=== PATIENT | female | born 1990 | race American Indian/Alaskan Native ===

== ENCOUNTER 2017-12-07 17:13 | Emergency (ER) | payer OTHER ==
[2017-12-07 17:52] VITALS: BP 124/78
[2017-12-07] MEDS ORDERED: MOTRIN PO ONE (21:10)
[2017-12-07] MEDS ORDERED: BOOSTRIX IM ONE (21:11)
--- NOTE | 2017-12-07 21:11 | Emergency Department Report ---
ED Laceration HPI - HPI Chief Complaint: Wound/Laceration Stated Complaint: LEFT THUMB INJURY Time Seen by Provider: 12/07/17 20:37 Location: Upper Extremity Severity: mild Laceration Symptoms: No Foreign Body Sensation, No Numbness, No Weakness, No Pain Other History: Patient is a 19-year-old female with no prior medical history who presents to ED today complaining of left thumb injury that happened earlier today. Patient states she was at the change using a machine when she was trying to fix a part of the machine and it accidentally caught her thumb. Patient states minimal bleeding of skin on the thumb. Patient states her tetanus is not up-to-date and unknown last tetanus booster. She denies any other symptoms. ED Review of Systems ROS: Stated complaint: LEFT THUMB INJURY Other details as noted in HPI Constitutional: denies: chills, fever Eyes: denies: eye pain, eye discharge, vision change ENT: denies: ear pain, throat pain Respiratory: denies: cough, shortness of breath, wheezing Cardiovascular: denies: chest pain, palpitations Endocrine: no symptoms reported Gastrointestinal: denies: abdominal pain, nausea, diarrhea Genitourinary: denies: urgency, dysuria, discharge Musculoskeletal: denies: back pain, joint swelling, arthralgia Skin: other (lac). denies: rash, lesions, pruritus Neurological: denies: headache, weakness, paresthesias Psychiatric: denies: anxiety, depression Hematological/Lymphatic: denies: easy bleeding, easy bruising ED Past Medical Hx - Past Medical History Previous Medical History?: No - Surgical History Past Surgical History?: No - Social History Smoking Status: Never Smoker Substance Use Type: None - Medications Home Medications: Home Medications Medication Instructions Recorded Confirmed Last Taken Type Cephalexin [Keflex] 500 mg PO Q12HR #10 cap 12/07/17 Unknown Rx Ibuprofen [Motrin] 800 mg PO Q8HR PRN #30 tablet 12/07/17 Unknown Rx Laceration Physical Exam - Exam General: Vital signs noted. No distress. Alert and acting appropriately. EXtrem: Radial Pulse 2+ bilaterally, nonedematous, patient admits to move fingers without any problems, capillary refill 2+ bilaterally Wound Length (cm): 1 Laceration Location: Upper Extremity (avulsed skin on left thumd and palm, abrasion) Laceration Exam: Yes Normal Distal CMS, No Foreign Body, No Exposed Tendon, Vessel, or Nerve, No Tendon Injury ED Course Vital Signs 12/07/17 17:47 Temperature 98.3 F Pulse Rate 96 H Respiratory 16 Rate Blood Pressure 124/78 O2 Sat by Pulse 98 Oximetry ED Medical Decision Making - Medical Decision Making 27-year-old female presents with minor abrasions to the thump and palm of the left hand ED course: Patient received tetanus booster and ED Motrin for pain Abrasions were cleaned, Steri-Strips applied to the cut on thumb Discussed to keep wound dry. Discussed follow-up with primary care physician. Discussed with the pt abrasions and minor laceration will heal within 10 days ed Discuss couple days of antibiotic to prevent infection Vital signs are normal patient is in no acute distress Critical care attestation.: If time is entered above; I have spent that time in minutes in the direct care of this critically ill patient, excluding procedure time. ED Disposition Clinical Impression: Hand abrasion, non-infected Disposition: - TO HOME OR SELFCARE Is pt being admited?: No Does the pt Need Aspirin: No Condition: Stable Instructions: Acute Wound Care (ED), Abrasion (ED) Additional Instructions: Make sure to follow up with the primary care physician as discussed. Take all your medications as you've been prescribed. If you have any worsening symptoms or develop new symptoms please return to ED immediately. Prescriptions: Cephalexin [Keflex] 500 mg PO Q12HR #10 cap Ibuprofen [Motrin] 800 mg PO Q8HR PRN #30 tablet PRN Reason: Pain Referrals: DANAE DUKES MD [Primary Care Provider] - 3-5 Days LARS UMAÑA MD [Referring] - 3-5 Days [facility] [Outside] - 3-5 Days [facility] [Outside] - 3-5 Days Forms: Work/School Release Form(ED) Time of Disposition: 21:51
== END 2017-12-07 22:01 | disposition home or self-care (01) ==
LOC: ED 17:13
DX: S61.012A Laceration without foreign body of left thumb without damage to nail, initial encounter (principal); W31.9XXA Contact with unspecified machinery, initial encounter; Y93.89 Activity, other specified; Y99.8 Other external cause status; Y92.89 Other specified places as the place of occurrence of the external cause
CPT/HCPCS: 90471; 90715; 96372; 99282; 99283

== ENCOUNTER 2021-01-19 03:09 | Inpatient (IN) | payer BC, OTHER ==
[~2021-01-19 03:09] MED LIST: AMPICILLIN/NS 2 GM/100 ML 2 GM/100 ML BAG IV ONE; LACTATED RINGERS 1,000 ML ONE; ePHEDrine SULFATE 50 MG/1 ML INJ ONE
[2021-01-19] MEDS ORDERED: LACTATED RINGERS 1,000 ML ONE ×2 (03:15→05:11)
[2021-01-19] MEDS ORDERED: fentaNYL-BUPIV 2 MCG/ML-0.125% 200 MCG/100 ML BAG EPIDURAL ONE (03:28)
[2021-01-19] MEDS ORDERED: ePHEDrine SULFATE 50 MG/1 ML INJ IV PRN ×3 (03:45→05:18)
[2021-01-19] MEDS ORDERED: NALOXONE 2 MG/2 ML INJ IV PRN ×2 (03:45→04:06)
--- NOTE | 2021-01-19 03:46 | Anesthesia Consultation ---
Anesthesia Consult and Med Hx Date of service: 01/19/21 - Airway Anesthetic Teeth Evaluation: Good ROM Head & Neck: Adequate Mental/Hyoid Distance: Adequate Mallampati Class: Class II Intubation Access Assessment: Probably Good - Pulmonary Exam CTA: Yes - Cardiac Exam Cardiac Exam: RRR - Pre-Operative Health Status ASA Pre-Surgery Classification: ASA2, Emergency - Pulmonary Hx Smoking: No Hx Asthma: No Hx Respiratory Symptoms: No SOB: No COPD: No Home Oxygen Therapy: No Hx Pneumonia: No Hx Sleep Apnea: No - Cardiovascular System Hx Hypertension: No Hx Coronary Artery Disease: No Hx Heart Attack/AMI: No Hx Angina: No Hx Percutaneous Transluminal Coronary Angioplasty (PTCA): No Hx Cardia Arrhythmia: No Hx Pacemaker: No Hx Internal Defibrillator: No Hx Valvular Heart Disease: No Hx Heart Murmur: No Hx Peripheral Vascular Disease: No - Central Nervous System Hx Neuromuscular Disorder: No Hx Seizures: No CVA: No Hx Back Pain: No Hx Psychiatric Problems: No - Gastrointestinal Hx Ulcer: No Hx Gastroesophageal Reflux Disease: Yes - Endocrine Hx Renal Disease: No Hx End Stage Renal Disease: No Hx Cirrhosis: No Hx Liver Disease: No Hx Insulin Dependent Diabetes: No Hx Non-Insulin Dependent Diabetes: No Hx Thyroid Disease: No Hx Hypothyroidism: No Hx Hyperthyroidism: No - Hematic Hx Anemia: No Hx Sickle Cell Disease: No - Other Systems Hx Alcohol Use: No Hx Substance Use: No Hx Cancer: No Hx Obesity: Yes
--- NOTE | 2021-01-19 03:47 | Progress Note ---
Labor Epidural - Labor Epidural Start Time: 03:35 Stop Time: 03:45 Performed by:: DERREK WEBER Procedure: Patient is requesting a laboring epidural for laboring pain. Patient IDed, H&P reviewed, all questions and concerns were answered, and consent was signed. Timeout was performed at bedside. Patient in sitting position. Sterile prep and drape was performed. [3] ml of 1% lidocaine skin wheal at L[3]- L [4]. 18- gauge Tuohy epidural needle was advanced to loss of resistance with saline technique. Negative CSF negative blood. Epidural catheter advanced to [12] centimeters. [NEGATIVE] Aspiration [NEGATIVE] test dose. Sterile dressing applied. Patient tolerated procedure.
[2021-01-19] MEDS ORDERED: fentaNYL-BUPIV 2 MCG/ML-0.125% 200 MCG/100 ML BAG EPIDURAL SCH ×2 (04:00→05:00)
[2021-01-19] MEDS ORDERED: TERBUTALINE 1 MG/1 ML INJ SUB-Q PRN (05:18)
[2021-01-19] MEDS ORDERED: miSOPROStol 200 MCG TAB PR PRN (05:18)
[2021-01-19] MEDS ORDERED: OXYTOCIN 10 UNIT/1 ML INJ IM PRN (05:18)
[2021-01-19] MEDS ORDERED: LIDOCAINE (2%) 20 MG/1 ML VIAL 20 ML MDV INFILTRATI ONE (05:18)
[2021-01-19] MEDS ORDERED: METHYLERGONOVINE MALEATE 0.2 MG/ML VIAL IM PRN (05:18)
[2021-01-19] MEDS ORDERED: CARBOPROST TROMETHAMINE 250 MCG/1 ML INJ IM PRN (05:18)
[2021-01-19] MEDS ORDERED: LOPERAMIDE 2 MG CAP PO PRN (05:18)
[2021-01-19] MEDS ORDERED: OXYTOCIN DRIP 30 UNITS/500 ML BAG IV SCH ×3 (06:00→20:00)
[2021-01-19] MEDS ORDERED: AMPICILLIN/NS 1 GM/50 ML 1 GM/50 ML BAG IV ONE (07:00)
[2021-01-19] MEDS: AMPICILLIN/NS 1 GM/50 ML 1 GM/50 ML BAG IV SCH ×3 (07:29→14:21)
--- NOTE | 2021-01-19 08:46 | History and Physical Report ---
History of Present Illness Date of examination: 01/19/21 Date of admission: 01/19/21 05:18 Chief complaint: Painful frequent contractions History of present illness: 30 yo, @ 39.5 wks, initiated care with [facility] at 11.5 weeks gestation. has been complicated by +Covid, Rt choroid plexus cyst, UTI and +GBS status. Presents to [facility] with reports of frequent painful ctxs for past couple of hours. Reports +FM. Denies any VB or LOF. Labs: B+, antibody negative; rubella immune; VDRL negative; HBsAg negative; HIV negative; GC/Chlamydia negtive; HSV2 negative; 1hr gttt- 105; GBS positive. Past History Past Medical History: no pertinent history Past Surgical History: no surgical history Family/Genetic History: hypertension (MGM), cancer (MGM), other (Asthma - brother) Social history: single, lives with family, full code. denies: smoking, alcohol abuse, prescription drug abuse, IV drug use - Obstetrical History Expected Date of Delivery: 01/21/21 Actual Gestation: 39 Week(s) 5 Day(s) : 2 Para: 1 Hx # Term Pregnancies: 1 Number of Pregnancies: 0 Spontaneous Abortions: 0 Induced : 0 Number of Living Children: 1 #1 Infant Gender: Female year: Birthweight: 3.203 kg Method of Delivery: Vaginal Gestational age at delivery: 39 Complications: none Medications and Allergies Allergies Allergy/AdvReac Type Severity Reaction Status Date / Time No Known Allergies Allergy Verified 01/19/21 03:25 Home Medications Medication Instructions Recorded Confirmed Last Taken Type One Daily Tablet 1 tab PO DAILY 01/19/21 01/19/21 2 Days Ago History ~01/17/21 Active Meds: Active Medications Carboprost Tromethamine (Carboprost Tromethamine 250 Mcg/1 Ml Inj) 250 mcg IM ONCE PRN PRN Reason: Uterine Bleeding Stop: 01/20/21 05:17 Ephedrine Sulfate (Ephedrine Sulfate 50 Mg/1 Ml Inj) 10 mg IV Q2M PRN PRN Reason: Hypotension Fentanyl/Bupivacaine/Sodium Chlor (Fentanyl-Bupiv 2 Mcg/Ml-0.125%) 200 mcg in 100 mls @ 12 mls/hr EPIDURAL TITR BLAKE; Protocol Lactated Ringer's (Lactated Ringers) 1,000 mls @ 125 mls/hr IV DIRECT BLAKE Oxytocin/Sodium Chloride (Pitocin/Ns 30 Unit/500ml) 30 units in 500 mls @ 40 mls/hr IV TITR BLAKE; Protocol Ampicillin Sodium (Ampicillin/Ns 1 Gm/50 Ml) 1 gm in 50 mls @ 100 mls/hr IV Q4H BLAKE; Protocol Last Admin: 01/19/21 07:29 Dose: Not Given Documented by: Loperamide HCl (Loperamide 2 Mg Cap) 2 mg PO ONCE PRN PRN Reason: give with Hemabate Stop: 01/20/21 05:17 Methylergonovine Maleate (Methylergonovine Maleate 0.2 Mg/Ml Vial) 0.2 mg IM ONCE PRN PRN Reason: Uterine Bleeding Stop: 01/20/21 05:17 Mineral Oil (Mineral Oil 30 Ml Oral Liqd) 30 ml PO QHS PRN PRN Reason: Constipation Misoprostol (Misoprostol 200 Mcg Tab) 800 mcg HI ONCE PRN PRN Reason: Uterine Bleeding Stop: 01/20/21 05:17 Naloxone HCl (Naloxone 2 Mg/2 Ml Inj) 0.2 mg IV Q5M PRN PRN Reason: Respiratory sedation Oxytocin (Oxytocin 10 Unit/1 Ml Inj) 10 unit IM ONCE PRN PRN Reason: Uterine Bleeding Stop: 01/20/21 05:17 Terbutaline Sulfate (Terbutaline 1 Mg/1 Ml Inj) 0.25 mg SUB-Q ONCE PRN PRN Reason: Hyperstimulation/Hypertonicity Stop: 01/20/21 05:17 Review of Systems All systems: negative Genitourinary: contractions (painful ctxs) - Vital Signs Vital signs: Vital Signs Temp Resp Pulse Ox 98.6 F 20 97 01/19/21 03:19 01/19/21 03:19 01/19/21 03:19 Temp Pulse Resp BP Pulse Ox 97.5 F L 18 97 01/19/21 07:09 01/19/21 07:09 01/19/21 03:19 - Physical Exam Breasts: Positive: normal Cardiovascular: Regular rate Lungs: Positive: Normal air movement Abdomen: Positive: other (gravid) Genitourinary (Female): Positive: normal external genitalia, normal perenium Vagina: Positive: normal moisture Uterus: Positive: enlarged Extremities: Positive: normal Deep Tendon Reflex Grade: Normal +2 - Obstetrical FHR: category 1 Uterine Contraction Monitor Mode: Internal Cervical Dilatation: 5 (vertex) Cervical Effacement Percentage: 60 station: -2 Uterine Contraction Frequency (min): 4-6 Uterine Contraction Pattern: Irregular Uterine Tone Measurement Phase: Resting Uterine Contraction Intensity: Mild Results Result Diagrams: 01/19/21 01:20 All other labs normal. Assessment and Plan - Patient Problems (1) Active labor at term Current Visit: Yes Status: Acute Plan to address problem: AROM @ 0813 of clear fluids FSE/ IUPC placed without difficulty Initiate Pitocin titration as tolerated Anticipate (2) Positive GBS test Current Visit: Yes Status: Acute Plan to address problem: Continue GBS prophylaxis (3) Anemia Current Visit: Yes Status: Acute Qualifiers: Anemia type: iron deficiency Plan to address problem: Asymptomatic
[2021-01-19] MEDS: LACTATED RINGERS 1,000 ML IV SCH ×2 (09:17→14:34)
[2021-01-19 10:43] LABS: Hematocrit 33.3 % (30.3-42.9); Hemoglobin 10.8 gm/dl (10.1-14.3); Mean Corpuscular Volume 79 fl (79-97); Red Blood Count 4.21 M/mm3 (3.65-5.03)
[2021-01-19 10:44] LABS: Basophils % (Auto) 0.7 % (0.0-1.8); Eosinophils # (Auto) 0.2 K/mm3 (0.0-0.4); Lymphocytes # (Auto) 2.7 K/mm3 (1.2-5.4); Mean Corpuscular HGB Conc 33 % (30-34); Monocytes # (Auto) 0.9 K/mm3 (0.0-0.8); Monocytes % (Auto) 9.6 % (0.0-7.3); Platelet Count 257 K/mm3 (140-440); Red Cell Distribution Width 14.6 % (13.2-15.2)
[2021-01-19 10:45] LABS: Basophils # (Auto) 0.1 K/mm3 (0.0-0.1)
--- NOTE | 2021-01-19 13:38 | Progress Note ---
Assessment and Plan - Patient Problems (1) Active labor at term Current Visit: Yes Status: Acute Plan to address problem: Continue Pitocin titration as tolerated Anticipate (2) Positive GBS test Current Visit: Yes Status: Acute Plan to address problem: Continue GBS prophylaxis (3) Anemia Current Visit: Yes Status: Acute Qualifiers: Anemia type: iron deficiency Plan to address problem: Asymptomatic Subjective - Subjective Date of service: 01/19/21 Principal diagnosis: Active labor Interval history: 30 yo, @ 39.5 wks, initiated care with [facility] at 11.5 weeks gestation. has been complicated by +Covid, Rt choroid plexus cyst, UTI and +GBS status. Presents to [facility] with reports of frequent painful ctxs for past couple of hours. Reports +FM. Denies any VB or LOF. Labs: B+, antibody negative; rubella immune; VDRL negative; HBsAg negative; HIV negative; GC/Chlamydia negtive; HSV2 negative; 1hr gttt- 105; GBS positive. Patient reports: loss of fluid (clear), movement normal, contractions (irregular), no new complaints, no vaginal bleeding Objective - Vital Signs Vital Signs: Vital Signs - 12hr 01/19/21 01/19/21 01/19/21 03:19 07:09 10:26 Temperature 98.6 F 97.5 F L 96.5 F L Respiratory 20 18 Rate O2 Sat by Pulse 97 Oximetry - Exam Breasts: deferred Cardiovascular: Regular rate Lungs: Normal air movement FHR: category 1 Uterine Contraction Monitor Mode: Internal Cervical Dilatation: 7 (per RN) Cervical Effacement Percentage: 90 (Pitocin @ 10mu/min) station: -2 Uterine Contraction Frequency (min): 2-4 Uterine Contraction Pattern: Irregular Uterine Contraction Intensity: Moderate - Labs Labs: Abnormal Labs 01/19/21 01:20 MCH 26 L [place] % (Auto) 9.6 H [place] # (Auto) 0.9 H Laboratory Results - last 24 hr 01/19/21 01/19/21 01:20 01:20 WBC 9.5 RBC 4.21 Hgb 10.8 Hct 33.3 MCV 79 MCH 26 L MCHC 33 RDW 14.6 Plt Count 257 Lymph % (Auto) 28.0 [place] % (Auto) 9.6 H Eos % (Auto) 2.0 Baso % (Auto) 0.7 Lymph # (Auto) 2.7 [place] # (Auto) 0.9 H Eos # (Auto) 0.2 Baso # (Auto) 0.1 Seg Neutrophils % 59.7 Seg Neutrophils # 5.7 Blood Type B POSITIVE Antibody Screen Negative
--- NOTE | 2021-01-19 14:53 | Event Note ---
Date: 01/19/21 Pt is somewhat comfortable with her epidural. Category II tracing. SVE: 7.5/90/- 2. Head well applied to cervix. MVUs noted to be adequate. Closely monitor maternal and clinical status.
[2021-01-19] MEDS ORDERED: ceFAZolin/Water 2 GM/20 ML 2 GM/20 ML SYRINGE IV NR (15:00)
[2021-01-19] MEDS ORDERED: METOCLOPRAMIDE 10 MG/2 ML INJ IV ONE (15:57)
[2021-01-19] MEDS ORDERED: BICITRA ORAL LIQD 30ML PO ONE (15:57)
[2021-01-19] MEDS ORDERED: FAMOTIDINE 20 MG/2 ML INJ IV ONE (15:57)
[2021-01-19] MEDS ORDERED: LACTATED RINGERS 1,000 ML IV SCH (16:00)
[2021-01-19] MEDS ORDERED: CARBOPROST TROMETHAMINE 250 MCG/1 ML INJ IM ONE (17:16)
[2021-01-19] MEDS ORDERED: METHYLERGONOVINE MALEATE 0.2 MG/ML VIAL IM ONE (17:16)
[2021-01-19] MEDS ORDERED: miSOPROStol 200 MCG TAB ONE (17:16)
--- NOTE | 2021-01-19 17:18 | Event Note ---
Date: 01/19/21 On-call MD called to the bedside secondary to change in baseline to 95-98 from 105-110 bpm. SVE: /1. Plan to proceed with primary section. On- call provider told that another surgery is in the OR and we can proceed with once the OR is clean. Anesthesia aware of case. Pt's lab resulted COVID-19 positive since last note. Closely monitor clinical status. Pt also now reports that she feels lightheaded, and complaints of Right sided back pain. Continue to monitor clinical status.
[2021-01-19] MEDS ORDERED: ceFAZolin/STERILE WATER 2 GM/20 ML SYRINGE IV ONE (17:35)
[2021-01-19] MEDS ORDERED: WATER FOR IRRIG STERILE 1,500 ML BOTTLE IR ONE (17:49)
[2021-01-19] MEDS ORDERED: SODIUM CHLORIDE 0.9% IRR 1,500 ML BOTTLE IR ONE (17:49)
[2021-01-19] MEDS ORDERED: OXYTOCIN 10 UNIT/1 ML INJ ONE (18:07)
[2021-01-19] MEDS ORDERED: SODIUM CHLORIDE 0.9% 500 ML 500 ML IV SCH (18:14)
[2021-01-19] MEDS ORDERED: SODIUM CHLORIDE 0.9% 500 ML 500 ML ONE (18:26)
[2021-01-19] MEDS ORDERED: ONDANSETRON 4 MG/2 ML INJ ONE (18:28)
[2021-01-19] MEDS ORDERED: BUPIVACAINE/PF (0.5%) 5 MG/1 ML 30 ML VIAL INFILTRATI ONE ×2 (19:10)
[2021-01-19] MEDS ORDERED: dexAMETHasone 20 MG/5 ML VIAL ONE (19:11)
[2021-01-19] MEDS ORDERED: SODIUM CHLORIDE 0.9% 100 ML ONE (19:13)
--- NOTE | 2021-01-19 19:39 | Procedure Note ---
OB Delivery Note - Delivery Date of Delivery: 01/19/21 Surgeon: JODIE SANCHEZ Estimated blood loss: other (2710 mL by QBL) - Section Preop diagnosis: nonreassuring FHR tracing Postop diagnosis: same section procedure: section, primary low transverse Disposition: PACU Complications: intra-op hemorrhage, uterine atony Narrative: Please see operative report - A at 1 minute: 8 at 5 minutes: 9 Gender: Male (3355g (7lb 6.3 oz) @ 1801 pm)
--- NOTE | 2021-01-19 19:40 | Operative Report ---
Operative Report Operative Report: Date of procedure: January 19, 2021 Preoperative diagnosis: 1) IUP at 39w5d 2) Nonreassuring status- baseline change to 95 bpm 3) Obesity Postoperative diagnosis: Same 4) Uterine Atony Procedure: Primary low transverse section Surgeon: Shelby Bryson M.D. Anesthesia: Regional Findings: 1) Viable male , Apgars 8 and 9, weight 3355 g, (7 lb 6.3 oz) in cephalic presentation. Occiput posterior. Nuchal Cord x 2 2) Normal-appearing uterus ovaries and tubes Estimated blood loss: 2710 mL IV fluids: 1300 mL Blood: 2 units PRBCs intraoperatively Urine output: 100 mL, blood tinged prior to the procedure; blood tinged but clearing at the end of the procedure Drains: Lazo to gravity Specimens: None Complications: Introperative Hemorrhage. Counts correct x 3 Medications: Methergine 0.2 mg IM x 2 doses; Misoprostol 800 mcg per rectum Disposition: Stable to PACU Indication for procedure: Pt is a 30 year old -[place] presents in active labor and experienced a protracted labor process with change from 6 to 8 cm over 14 hours, then chnage in baseline from 115 to 95 beats per minute. The decision was made to proceed to delivery. Operation in detail: After the risks, benefits, alternatives and complications were explained to the patient she gave informed consent for the procedure. She was subsequently taken to the operating room where regional anesthesia was noted to be adequate. She was placed in the dorsal supine position with leftward tilt and prepped and draped in a normal sterile fashion. heart tones were noted prior to incision. A timeout was performed. A Pfannenstiel skin incision was made with the knife and carried down to the layer of the fascia with the Bovie. The fascia was incised in the midline and the fascial incision was extended bilaterally with the Bovie. The fascial incision was then stretched. The rectus muscles were then in the midline and partially transected for adequate visualization. The peritoneum was then entered bluntly. The peritoneal incision was extended with good visualization of the bladder. The peritoneal incision was then stretched. An Otis retractor was placed. The bladder blade was then placed. The vesicouterine peritoneum was grasped with smooth pick ups and incised with Metzenbaum scissors. A bladder flap was then created digitally and the bladder blade was replaced. A transverse incision was made in the lower uterine segment with a knife and extended bilaterally with the bandage scissors. Amniotomy was performed with egress of clear fluid. head delivered with difficulty and assistance of a vaginal hand, nuchal cord x 2 was reduced, followed by delivery of the shoulders and body. bulb suctioned at delivery. Cord clamped and cut. handed to NICU staff in attendance. The placenta was then delivered manually. The uterus was then exteriorized and cleared of all clots and debris. The uterus was noted to be atonic despite pitocin administration. Methergine was administered IM for two doses. The hysterotomy was then reapproximated with 0 Monocryl in a running locked fashion. Mutiple figure of eights of 0 Monorcyl and 4-0 Monocryl were used to obtain hemostasis of the hysterotomy. The hysterotomy was inspected and hemostasis was noted. The uterus was placed back into the peritoneal cavity. The gutters were irrigated and cleared of all clots and debris. The hysterotomy was again inspected and noted to be hemostatic. He moblast and Surgicel were placed over the hysterotomy. The Otis retractor was removed. The peritoneum was reapproximated with 0 Monocryl in a running fashion incorporating the rectus muscles. Surgicel was placed over the rectus muscles. The fascia was reapproximated with 0 Vicryl in a running fashion. The subcutaneous tissue was reapproximated with 3-0 Vicryl in a running fashion. The skin was reapproximated with 3-0 Monocryl in a subcuticular fashion. The incision was then covered with steri strips and a pressure dressing. The procedure was then ended. The patient tolerated the procedure well and was taken to the PACU in stable condition. All instrument, lap, and needle counts were correct 3. A repeat hemoglobin and hematocrit will be drawn one hour after transfusion of the second unit of PRBCs.
[2021-01-19] MEDS ORDERED: ONDANSETRON 4 MG/2 ML INJ IV PRN (19:53)
[2021-01-19] MEDS ORDERED: LANOLIN/ZINC/DIMETHICONE (LANSINOH) 7 GM TP PRN (19:53)
[2021-01-19] MEDS ORDERED: SIMETHICONE 80 MG CHEW TAB PO PRN (19:53)
[2021-01-19] MEDS ORDERED: NALOXONE 0.4 MG/1 ML INJ IV PRN (19:53)
[2021-01-19] MEDS ORDERED: WITCH HAZEL/ GLYCERIN PAD TP PRN (19:53)
[2021-01-19] MEDS ORDERED: MAGNESIUM HYDROXIDE (MOM) ORAL LIQD UDC PO PRN (19:53)
[2021-01-19] MEDS ORDERED: MORPHINE 2 MG/1 ML INJ IV PRN (19:53)
--- NOTE | 2021-01-19 20:33 | Anesthesia Day of Surgery ---
Anesthesia Day of Surgery - Day of Surgery Patient Examined: Yes Patient H&P Reviewed: Yes Patient is NPO: Yes Beta Blockers: No Cardiac Clearance: No Pulmonary Clearance: No Osito's Test: N/A
--- NOTE | 2021-01-19 20:34 | Progress Note ---
Regional Anesthesia Block - Regional Anesthesia Block Start Time: 19:36 Stop Time: 19:47 Performed By:: DERREK WEBER Procedure: Patient consented for TAP block for post surgical pain management. Patient identified, monitors placed, and time out performed. TAP identified bilaterally via ultrasound. Skin prepped bilaterally with [chlorhexidine] and [22g stimuplex] needle advanced to the TAP. [Marcaine 0.22% 35ml] injected under ultrasound guidance on the [left] side. [Marcaine 0.22% 35ml] injected under ultrasound guidance on the [right] side. Negative aspiration every 5mL, No change in heart rate or rhythm. Patient tolerated the procedure well. No apparent complications seen.
[2021-01-19 21:08] LABS: Hematocrit 41.2 % (30.3-42.9); Hemoglobin 13.4 gm/dl (10.1-14.3)
[2021-01-19] MEDS ORDERED: MINERAL OIL 30 ML ORAL LIQD PO PRN (22:00)
[2021-01-19] MEDS: ceFAZolin/NS 1 GM/50 ML 1 GM/50 ML BAG IV SCH (22:18)
[2021-01-19] MEDS: D5W/LACTATED RINGERS 1,000 ML IV SCH (22:18)
[2021-01-20] MEDS: oxyCODONE /ACETAMINOPHEN 5-325MG TAB PO PRN ×5 (00:40→21:39)
[2021-01-20] MEDS: MORPHINE 4 MG/1 ML INJ IV PRN ×2 (04:42→17:37)
[2021-01-20] MEDS: ceFAZolin/NS 1 GM/50 ML 1 GM/50 ML BAG IV SCH (06:23)
[2021-01-20] MEDS: D5W/LACTATED RINGERS 1,000 ML IV SCH (06:23)
--- NOTE | 2021-01-20 08:41 | Progress Note ---
Assessment and Plan - Patient Problems (1) Status post primary low transverse section Current Visit: Yes Status: Acute Plan to address problem: Continue routine PP orders Keep dressing clean and dry, remove on POD #2 Anticipate d/c home in 24-48 hrs if stable (2) COVID-19 Current Visit: Yes Status: Acute Plan to address problem: Asymptomatic Maintaine Covid precautions Subjective - Subjective Date of service: 01/20/21 Principal diagnosis: S/P primary C/S; POD#1; Covid + Interval history: Pt is a 30 year old -[place] presents in active labor and experienced a protracted labor process with change from 6 to 8 cm over 14 hours, then chnage in baseline from 115 to 95 beats per minute. The decision was made to proceed to delivery. Patient reports: appetite normal (remains on clear liquid diet), voiding normally, pain well controlled (with medications), ambulating normally, no flatus, no bowel movement : doing well, bottle feeding (and ) Objective - Vital Signs Latest vital signs: Vital Signs Temp Pulse Resp BP Pulse Ox 01/20/21 08:38 97.9 F 58 L 18 96/48 96 01/20/21 07:18 18 01/20/21 06:23 18 01/20/21 05:12 18 01/20/21 04:42 18 01/20/21 04:20 98.7 F 65 16 99/57 01/20/21 01:40 18 01/20/21 00:40 18 01/20/21 00:30 98.7 F 74 18 106/65 01/19/21 21:50 98.3 F 64 20 107/77 97 01/19/21 21:18 97.9 F 01/19/21 20:53 92/58 01/19/21 20:28 91/56 01/19/21 20:26 89/55 01/19/21 20:13 94/61 01/19/21 19:47 96.0 F L 114/58 01/19/21 17:00 105/68 01/19/21 14:52 96.6 F L 01/19/21 10:26 96.5 F L Intake and Output 01/19/21 01/20/21 01/20/21 23:59 07:59 15:59 Intake Total 2050 2080 Output Total 650 300 300 Balance 1400 1780 -300 Intake: IV 1550 1000 ANCEF/NS 1 GM/50 ML 1 gm 50 In 50 ml @ 100 mls/hr IV Q8H BLAKE Rx#:[id number] D5lr 1,000 ml @ 125 mls/ 1000 hr IV DIRECT [facility] Rx#: [id number] Oral 360 Intake, Free Water 720 Blood Product 500 Output: Urine 650 300 300 Indwelling Catheter 350 300 Uretheral (Lazo) 100 Void 300 Other: Total, Intake Amount 360 Total, Output Amount 350 300 300 # Voids Indwelling Catheter 550 Void 1 Estimated Blood Loss 2,710 - Exam Breasts: Present: normal Cardiovascular: Present: Regular rate Lungs: Present: Normal air movement Abdomen: Present: soft, tenderness Uterus: Present: firm, fundal height below umbilicus (U-1) Extremities: Present: edema Deep Tendon Reflex Grade: Normal +2 Incision: Present: dressed (no shadow drainage or bleeding noted) - Labs Labs: Abnormal lab results 01/19/21 01/19/21 01/19/21 Range/Units 01:20 01:20 09:33 MCH 26 L (28-32) pg [place] % (Auto) 9.6 H (0.0-7.3) % [place] # (Auto) 0.9 H (0.0-0.8) K/mm3 Coronavirus (PCR) Positive A (Negative) Crossmatch See Detail
--- NOTE | 2021-01-20 09:41 | Post Anesthesia Evaluation ---
- Post Anesthesia Evaluation Patient Participated: Yes Airway Patent: Yes Stable Respiratory Function: Yes Nausea/Vomiting: No Temp > 96.8F: Yes Pain Manageable: Yes Adequeate Hydration: Yes Anesthesia Complications: No Block Receding Appropriately: Yes Patient on Ventilator: No
[2021-01-20 14:21] LABS: Hematocrit 29.2 % (30.3-42.9); Hemoglobin 10.2 gm/dl (10.1-14.3)
[2021-01-20] MEDS ORDERED: MEASLES, MUMPS & RUBELLA 12,500 UNIT/0.5 ML VACCINE SUB-Q ONE (20:53)
[2021-01-20] MEDS ORDERED: TETANUS,DIPH,PERTUSS(ACELL) VACCINE 0.5 ML SYRINGE IM ONE (21:53)
[2021-01-21] MEDS: oxyCODONE /ACETAMINOPHEN 5-325MG TAB PO PRN (05:11)
--- NOTE | 2021-01-21 12:20 | Progress Note ---
Assessment and Plan - Patient Problems (1) Status post primary low transverse section Current Visit: Yes Status: Acute Plan to address problem: Patient doing well Advance diet as tolerated Discharge home if patient tolerates diet Subjective - Subjective Date of service: 01/21/21 Principal diagnosis: S/P primary C/S; POD#1; Covid + Interval history: Patient states she has not received regular diet as of yet. She denies flatus but reports feeling hungry. She denies any nausea vomiting. She has been able to void since removal of her Lazo. Her pain has been controlled. Patient reports: appetite normal, voiding normally, pain well controlled : doing well Objective - Vital Signs Latest vital signs: Vital Signs Temp Pulse Resp BP BP Pulse Ox 01/21/21 08:05 97.8 F 61 20 97/66 100 01/21/21 05:11 20 01/21/21 01:00 97.5 F L 74 18 108/58 100 01/20/21 21:39 20 01/20/21 16:02 98 F 69 18 109/68 100 01/20/21 12:47 97.7 F 62 18 106/62 98 Intake and Output 01/20/21 01/21/21 01/21/21 22:59 06:59 14:59 Intake Total 360 360 240 Output Total 450 Balance -90 360 240 Intake: Oral 120 240 Intake, Free Water 360 240 Output: Urine 450 Void 450 Other: Total, Intake Amount 120 240 Total, Output Amount 450 # Voids Void 2 1 1 - Exam Abdomen: Present: normal appearance, soft Incision: Present: normal - Labs Labs: Abnormal lab results 01/19/21 01/20/21 Range/Units 01:20 13:23 Hct 29.2 L D (30.3-42.9) % Crossmatch See Detail
--- NOTE | 2021-01-21 12:22 | Discharge Summary ---
Providers - Providers Date of Admission: 01/19/21 05:18 Date of discharge: 01/21/21 Attending physician: ADAMS DAVIS 01/19/21 19:53 Consult to Semi Driver [CONS] Routine Reason For Exam: Primary care physician: ADAMS DAVIS Hospitalization Reason for admission: active labor Delivery: Procedure: section, primary low transverse Incision: normal Discharge diagnosis: IUP at term delivered Hospital course: The patient was admitted in active labor however her intrapartum course was complicated by protracted labor. She was taken for primary delivery. Please see operative note for details of surgery. Her postoperative course was complicated by positive Covid status. She denied any significant respiratory symptoms. Condition at discharge: Good Disposition: DC- TO HOME OR SELFCARE - Discharge Diagnoses (1) Status post primary low transverse section Status: Acute (2) COVID-19 Status: Acute Plan - Discharge Medications Prescriptions: Ibuprofen [Motrin] 800 mg PO Q8HR PRN #60 tablet PRN Reason: Pain , Severe (7-10) oxyCODONE /ACETAMINOPHEN [Percocet 5/325] 1 tab PO Q6HR PRN #30 tablet PRN Reason: Pain - Provider Discharge Summary Activity: no sex for 6 weeks, no heavy lifting 4 weeks, no strenuous exercise Diet: routine Instructions: routine Additional instructions: [] Smoking cessation referral if applicable(refer to patient education folder for contact #) [] Refer to [facility]'s [facility] Booklet Call your doctor immediately for: * Fever > 100.5 * Heavy vaginal bleeding ( >1 pad per hour) * Severe persistent headache * Shortness of breath * Reddened, hot, painful area to leg or breast * Drainage or odor from incision. * Keep incision clean and dry at all times and follow doctor's instructions regarding bathing/showering Schedule follow-up with Dr. Bryson in 2 weeks for an incision check - Follow up plan
[2021-01-21 12:53] VITALS: BP 105/61
== END 2021-01-21 15:15 | disposition home or self-care (01) | DRG 786 ==
LOC: TRG 03:09 → LD 03:15 → TRG 08:28 → OB 21:27
PROVIDERS: ADMIT Obstetrics & Gynecology; ATTEND Obstetrics & Gynecology
PROC: 10D00Z1 Extraction of Products of Conception, Low, Open Approach (ICD-10-PCS; principal; 2021-01-19)
PROC: 30233N1 Transfusion of Nonautologous Red Blood Cells into Peripheral Vein, Percutaneous Approach (ICD-10-PCS; 2021-01-19)
PROC: 3E0T3BZ Introduction of Anesthetic Agent into Peripheral Nerves and Plexi, Percutaneous Approach (ICD-10-PCS; 2021-01-19)
PROC: 3E0234Z Introduction of Serum, Toxoid and Vaccine into Muscle, Percutaneous Approach (ICD-10-PCS; 2021-01-20)
DX: O76 Abnormality in fetal heart rate and rhythm complicating labor and delivery (principal); U07.1 COVID-19; O98.52 Other viral diseases complicating childbirth; O99.824 Streptococcus B carrier state complicating childbirth; O75.0 Maternal distress during labor and delivery; Z3A.39 39 weeks gestation of pregnancy; Z37.0 Single live birth; Z23 Encounter for immunization; Z82.49 Family history of ischemic heart disease and other diseases of the circulatory system; Z82.5 Family history of asthma and other chronic lower respiratory diseases; O99.02 Anemia complicating childbirth; D64.9 Anemia, unspecified; O62.2 Other uterine inertia; O99.214 Obesity complicating childbirth; E66.9 Obesity, unspecified; O69.81X0 Labor and delivery complicated by cord around neck, without compression, not applicable or unspecified
CPT/HCPCS: 36415; 85014; 85018; 85025; 86592; 86850; 86900; 86901; 86920; G0378; J0290; J0690; J1100; J2270; J2405; J2590; J7040; J7120; J7121; P9016; U0003